=== PATIENT | female | born 1995 | race Caucasian/White ===

== ENCOUNTER → 2020-01-25 | Outpatient (CLI) | payer BC ==
[~2020-01-25] MED LIST: SULF1TAB38 PO
== END ==
LOC: LABNPT 13:59
DX: R05 Cough (principal); R50.81 Fever presenting with conditions classified elsewhere
CPT/HCPCS: 87430; 87635

== ENCOUNTER → 2022-02-01 | Outpatient (CLI) | payer BC, OTHER ==
--- NOTE | 2022-02-01 08:39 | Diagnostic Imaging Report ---
PROCEDURE: US Hepatic (Liver). TECHNIQUE: Multiple real-time grayscale images were obtained over the right upper quadrant in various projections. INDICATION: Elevated liver function studies. COMPARISON: No relevant comparison. FINDINGS: The liver echotexture is dense and heterogeneous consistent with fatty infiltration with areas of relative relative sparing adjacent to the gallbladder fundus. The portal vein patent and showed a normal hepatopetal directional flow. The unobstructed right kidney appeared normal. The pancreas largely obscured by overlying bowel gas. The visualized portions of the aorta and IVC unremarkable. There was no ascites. IMPRESSION: Heterogeneous echodense fatty liver with no biliary pathology. Normal gallbladder. Unobstructed right kidney. No ascites. Dictated by: Dictated on workstation # [id number]
== END ==
LOC: RAD 07:15
PROVIDERS: ATTEND Nurse Practitioner Family
DX: K76.0 Fatty (change of) liver, not elsewhere classified (principal); R74.8 Abnormal levels of other serum enzymes
CPT/HCPCS: 76705